=== PATIENT | female | born 1965 | race Caucasian/White ===

== ENCOUNTER 2020-09-21 08:17 | Outpatient (REF) | payer OTHER, SELFPAY ==
[2020-09-21 11:16] LABS: Alanine Aminotransferase 28 U/L (0-31); Albumin Level 4.3 g/dL (3.5-5.0); Alkaline Phosphatase 69 U/L (39-117); Anion Gap 11 (12-20); Aspartate Amino Transferase 24 U/L (5-31); Bilirubin Total 0.5 mg/dL (0.0-1.0); Blood Urea Nitrogen 13 mg/dL (9-16); Carbon Dioxide 28 mmol/L (22-29); Chloride 107 mmol/L (96-108); Cholesterol 255 mg/dL; Estimated Glomerular Filt Rate > 60; Glucose Fasting 82 mg/dL (60-99); HDL Cholesterol 84 mg/dL; LDL Cholesterol Calculated 148 mg/dl; Potassium 4.1 mmol/L (3.3-5.1); Sodium 142 mmol/L (135-145); Total Protein 6.8 g/dL (6.5-8.0); Triglycerides 116 mg/dL
[2020-09-24 11:12] LABS: Vitamin D 25-OH, D2 <4 ng/mL; Vitamin D 25-OH, D3 30 ng/mL; Vitamin D 25-OH, Total 30 ng/mL (30-100)
== END 2020-09-21 08:18 | disposition home or self-care (01) ==
LOC: HO.10HDL 08:17
PROVIDERS: Visit Provider Internal Medicine
DX: E55.9 Vitamin D deficiency, unspecified (principal); E78.5 Hyperlipidemia, unspecified; Z83.3 Family history of diabetes mellitus
CPT/HCPCS: 36415; 80053; 80061; 82306

== ENCOUNTER 2020-12-31 08:01 | Outpatient (REF) | payer OTHER, SELFPAY ==
--- NOTE | ~2020-12-31 | MM_ITS ---
EXAMINATION: MM SCREENING DIGITAL BREAST TOMOSYNTHESIS, BILATERAL CLINICAL INFORMATION: Screening. Asymptomatic. Family history breast cancer, mother. The lifetime risk of breast cancer based on the Tyrer-Cuzick Model is 25%. COMPARISON: Outside mammography: 06/21/2019, 02/12/2016 ([facility]). TECHNIQUE: Digital breast tomosynthesis is performed in both the craniocaudal and mediolateral oblique views along with computer-aided detection (CAD). Synthesized 2D images are generated from the tomosynthesis. FINDINGS: There are scattered areas of fibroglandular density (ACR BI-RADS breast composition Category b). The left breast is unremarkable. There is no interval mass or developing density. Neither breast shows abnormal calcifications. The bilateral axilla and skin contours are unremarkable. The right CC view has increased parenchymal density medial retroareolar region likely incompletely compressed glandular tissue. Patient will be recalled for additional views. MM/MM tomosynthesis screening BI IMPRESSION: 1. Right: Parenchymal asymmetry medial retroareolar breast, suspect incompletely compressed glandular tissue. 2. Left: No mammographic evidence of malignancy. ASSESSMENT: BI-RADS 0: Incomplete - Need Additional Imaging Evaluation RECOMMENDATION: 1. Additional views of the right breast (3-D spot CC, nipple in profile; 3-D ML, nipple in profile). Targeted ultrasound if warranted after review of the additional views. 2. Radiology department staff will contact the patient for additional imaging. 3. The lifetime risk of breast cancer based on the Tyrer-Cuzick Model is 25%. Additional annual adjunct screening with breast MRI may be of benefit in women with a risk score of 20% or greater. This patient's information was entered into a reminder system with a target due date for their next mammogram.
== END 2020-12-31 08:02 | disposition home or self-care (01) ==
LOC: HO.MAMMO 08:01
PROVIDERS: Visit Provider Internal Medicine
DX: Z12.31 Encounter for screening mammogram for malignant neoplasm of breast (principal)
CPT/HCPCS: 77063; 77067

== ENCOUNTER 2021-01-12 08:40 | Outpatient (REF) | payer OTHER, SELFPAY ==
--- NOTE | ~2021-01-12 | MM_ITS ---
EXAMINATION: MM DIAGNOSTIC DIGITAL BREAST TOMOSYNTHESIS, RIGHT CLINICAL INFORMATION: Asymmetry retroareolar region COMPARISON: Mammography: December 31, 2020 and studies dating back to February 12, 2016 TECHNIQUE: Digital breast tomosynthesis is performed. 2D images are generated from the tomosynthesis. The following views are obtained: Spot compression 90 degree mediolateral and craniocaudal views of the right breast FINDINGS: The breasts are heterogeneously dense, which may obscure small masses (ACR BI-RADS breast composition Category c). Additional views show no significant mass, architectural abnormality, or abnormal calcifications. Results are discussed with the patient at time of visit. MM/MM tomosynthesis added views R IMPRESSION: No persistent suspicious subareolar right breast lesion. ASSESSMENT: BI-RADS 1: Negative RECOMMENDATION: Routine annual mammography screening due in 12 months. This patient's information was entered into a reminder system with a target due date for their next mammogram.
== END 2021-01-12 08:41 | disposition home or self-care (01) ==
LOC: HO.MAMMO 08:40
PROVIDERS: PCP Internal Medicine; Visit Provider Internal Medicine
DX: N64.89 Other specified disorders of breast (principal)
CPT/HCPCS: 77061; 77065

== ENCOUNTER 2021-07-13 08:04 | Outpatient (REF) | payer OTHER, SELFPAY ==
[2021-07-13 09:50] LABS: Alanine Aminotransferase 31 U/L (0-31); Albumin Level 4.5 g/dL (3.5-5.0); Alkaline Phosphatase 79 U/L (39-117); Anion Gap 12 (12-20); Aspartate Amino Transferase 26 U/L (5-31); Bilirubin Total 0.7 mg/dL (0.0-1.0); Blood Urea Nitrogen 16 mg/dL (9-16); Calcium 9.9 mg/dL (8.4-10.2); Carbon Dioxide 26 mmol/L (22-29); Chloride 106 mmol/L (96-108); Cholesterol 280 mg/dL; Estimated Glomerular Filt Rate > 60; Glucose Fasting 84 mg/dL (60-99); HDL Cholesterol 71 mg/dL; LDL Cholesterol Calculated 185 mg/dl; Potassium 4.7 mmol/L (3.3-5.1); Sodium 139 mmol/L (135-145); Total Protein 7.1 g/dL (6.5-8.0); Triglycerides 123 mg/dL
[2021-07-16 00:33] LABS: HPV mRNA E6/E7 rflx Not Detected (Not Detected)
[2021-07-18 05:37] LABS: Vitamin D 25-OH, D2 <4 ng/mL; Vitamin D 25-OH, D3 33 ng/mL; Vitamin D 25-OH, Total 33 ng/mL (30-100)
== END 2021-07-13 08:05 | disposition home or self-care (01) ==
LOC: HO.LAB 08:04
PROVIDERS: PCP Internal Medicine; Visit Provider Advanced Practice Midwife
DX: Z01.411 Encounter for gynecological examination (general) (routine) with abnormal findings (principal); Z11.51 Encounter for screening for human papillomavirus (HPV); R23.2 Flushing; E78.5 Hyperlipidemia, unspecified; E55.9 Vitamin D deficiency, unspecified
CPT/HCPCS: 36415; 80053; 80061; 82306; 87624; 88142

== ENCOUNTER 2022-01-10 08:07 | Outpatient (REF) | payer OTHER, SELFPAY ==
--- NOTE | ~2022-01-10 | MM_ITS ---
EXAMINATION: MM SCREENING DIGITAL BREAST TOMOSYNTHESIS, BILATERAL CLINICAL INFORMATION: Screening. Asymptomatic. The lifetime risk of breast cancer based on the Tyrer-Cuzick Model is 26%. COMPARISON: Mammography: 01/12/2021, 12/31/2020; outside mammography 06/21/2019, 02/12/2016 ([facility] TECHNIQUE: Digital breast tomosynthesis is performed in both the craniocaudal and mediolateral oblique views along with computer-aided detection (CAD). Synthesized 2D images are generated from the tomosynthesis. FINDINGS: There are scattered areas of fibroglandular density (ACR BI-RADS breast composition Category b). Parenchymal pattern is similar to prior studies. No developing density or interval architectural abnormality. No abnormal calcifications. The axilla and skin contours are unremarkable. MM/MM tomosynthesis screening BI IMPRESSION: No mammographic evidence of malignancy. ASSESSMENT: BI-RADS 1: Negative RECOMMENDATION: 1. Routine annual mammography screening. 2. The lifetime risk of breast cancer based on the Tyrer-Cuzick Model is 26%. Additional annual adjunct screening with breast MRI may be of benefit in women with a risk score of 20% or greater. This patient's information was entered into a reminder system with a target due date for their next mammogram.
== END 2022-01-10 08:08 | disposition home or self-care (01) ==
LOC: HO.MAMMO 08:07
PROVIDERS: Visit Provider Internal Medicine
DX: Z12.31 Encounter for screening mammogram for malignant neoplasm of breast (principal)
CPT/HCPCS: 77063; 77067

== ENCOUNTER 2022-10-22 08:47 | Outpatient (REF) | payer OTHER, SELFPAY ==
[2022-10-22 09:59] LABS: Alanine Aminotransferase 36 U/L (0-31); Albumin Level 4.4 g/dL (3.5-5.0); Alkaline Phosphatase 98 U/L (39-117); Anion Gap 9 (12-20); Aspartate Amino Transferase 30 U/L (5-31); Bilirubin Total 0.6 mg/dL (0.0-1.0); Blood Urea Nitrogen 13 mg/dL (9-16); Calcium 9.3 mg/dL (8.4-10.2); Carbon Dioxide 30 mmol/L (22-29); Chloride 107 mmol/L (96-108); Cholesterol 207 mg/dL; Estimated Glomerular Filt Rate > 60; Glucose Fasting 83 mg/dL (60-99); HDL Cholesterol 103 mg/dL; LDL Cholesterol Calculated 95 mg/dl; Potassium 4.8 mmol/L (3.3-5.1); Sodium 141 mmol/L (135-145); Total Protein 6.7 g/dL (6.5-8.0); Triglycerides 45 mg/dL
== END 2022-10-22 08:48 | disposition home or self-care (01) ==
LOC: HO.LAB 08:47
PROVIDERS: PCP Internal Medicine; Visit Provider Internal Medicine
DX: Z00.00 Encounter for general adult medical examination without abnormal findings (principal); E78.5 Hyperlipidemia, unspecified
CPT/HCPCS: 36415; 80053; 80061

== ENCOUNTER → 2022-12-21 08:20 | Outpatient (BNVA) | payer OTHER, SELFPAY | PROVIDERS: PCP Internal Medicine; Visit Provider Advanced Practice Midwife ==

== ENCOUNTER 2023-03-25 07:55 | Outpatient (REF) | payer OTHER, SELFPAY ==
--- NOTE | ~2023-03-25 | MM_ITS ---
EXAMINATION: MM SCREENING DIGITAL BREAST TOMOSYNTHESIS, BILATERAL CLINICAL INFORMATION: Screening. Asymptomatic. COMPARISON: Mammography: This study is compared with prior exams dating back to 2016. TECHNIQUE: Digital breast tomosynthesis is performed in both the craniocaudal and mediolateral oblique views along with computer-aided detection (CAD). Synthesized 2D images are generated from the tomosynthesis. FINDINGS: There are scattered areas of fibroglandular density (ACR BI-RADS breast composition Category b). There are no significant masses, abnormal calcifications, or other abnormalities. MM/MM tomosynthesis screening BI IMPRESSION: No mammographic evidence of malignancy. ASSESSMENT: BI-RADS BI-RADS 1 - Negative RECOMMENDATION: Routine annual mammography screening. 1 year F/U This examination should not preclude the clinical evaluation of a suspicious palpable abnormality. This patient's information was entered into a reminder system with a target due date for their next mammogram.
== END 2023-03-25 07:56 | disposition home or self-care (01) ==
LOC: HO.MAMMO 07:55
PROVIDERS: Visit Provider Internal Medicine
DX: Z12.31 Encounter for screening mammogram for malignant neoplasm of breast (principal)
CPT/HCPCS: 77063; 77067

== ENCOUNTER → 2023-03-25 08:00 | Outpatient (BNV) | payer OTHER, SELFPAY | PROVIDERS: Visit Provider Radiology Diagnostic Radiology | DX: Z12.31 Encounter for screening mammogram for malignant neoplasm of breast (principal) | CPT/HCPCS: 77063; 77067 ==

== ENCOUNTER 2023-09-05 07:19 | Outpatient (AMB) | payer OTHER, SELFPAY ==
[2023-09-05 07:22] VITALS: BP 124/78; PULSE 78; O2SAT 99; BMI 29.5
--- NOTE | 2023-09-05 07:22 | A.OFFPC_ITS ---
Vital Signs 09/05/23 07:22 Height 5 ft 4 in Weight 172 lb BMI 29.5 BP 124/78 Blood Pressure Location Lt brachial Position Sitting Pulse 78 Pulse Source Pulse Oximeter Pulse Oximetry (%) 99 Oxygen Delivery Method Room Air Intake Visit Reasons: physical Cardiac Catheterization Technologist Required: No Accompanied by: Self / Same As Patient Allergies No Known Allergies Allergy (Verified 09/05/23 07:31) Medication List - Last Reconciled 09/05/23 by Syl Ayala MD rosuvastatin 10 mg PO BEDTIME 90 days sertraline 25 mg PO DAILY 90 days Tobacco use date assessed: 09/05/23 Dental Screening Dental Screen Date: 09/05/23 Did you have a dental visit in the last 12 months?: Yes Did you have a dental problem in the last 6 months where you did not have access to dental care?: No Was dental information given to patient?: Patient has dentist HPI HPI Comments History of Present Illness Details This is a 57-year-old female with mild major depression that comes for her physical exam. Depression still present with sertraline 25 mg and I will increase it to 50 mg. Last mammogram was March 2023. Last Pap smear was 2020. Last colonoscopy was 8 years ago and was normal as per patient. No chest pain or shortness of breath. Had 1st dose of shingles vaccine last year but the 2nd dose was not covered by insurance and this is why she did not had it. She had shingles about a week ago and received treatment at urgent care. Still has rash but it is dry. [facility] Medical History (Updated 09/05/23 @ 07:39 by Syl Ayala MD) Physical exam Screening for cervical cancer Dyslipidemia Family history of diabetes mellitus Surgical History History of ankle surgery Family History (Updated 09/05/23 @ 07:35 by Syl Ayala MD) Mother Cancer Alzheimer disease Ovarian cancer Breast cancer Father Diabetes Sister Breast cancer Social History Housing: House Alcohol intake: current Alcohol intake frequency: a few times a week Alcohol type: beer, wine and hard liquor Patient Tobacco Use Status: Former Tobacco user Tobacco use type: Cigarette e-Cigarette/Vaping Use: Never Used Second Hand Smoke Exposure: No service: No Current occupational status: employed Current occupational exposures/hazards: No Cognitive needs: No Hearing needs: No Vision needs: Yes Questionnaire PHQ-9 Over the last 2 weeks, how often have you been bothered by any of the following problems? 1. Little interest or pleasure in doing things: nearly every day 2. Feeling down, depressed, or hopeless: several days 3. Trouble falling or staying asleep, or sleeping too much: several days 4. Feeling tired or having little energy: several days 5. Poor appetite or overeating: not at all 6. Feeling bad about yourself - or that you are a failure or have let yourself or your family down: not at all 7. Trouble concentrating on things, such as reading the newspaper or watching television: several days 8. Moving or speaking so slowly that other people could have noticed. Or the opposite - being so fidgety or restless that you have been moving around a lot more than usual: not at all 9. Thoughts that you would be better off or of hurting yourself in some way: not at all Total score: 7 Depression Screening Interpretation: Positive Depression Screening Follow-up: Existing condition and In treatment Depression Screening Done: Yes 55104 - PHQ-9 Billing: Yes Source: Developed by Drs. Jaswinder Soares, Radha Dent, Robinson Block and colleagues, with an educational jluis from [employer]. Thrive Questionnaire Date Thrive assessed: 09/05/23 I am a: Patient What is your living situation today?: I have a steady place to live Within the past 12 months, did the food you bought not last and you didn't have the money to get more?: Never true Within the past 12 months, did you worry whether your food would run out before you got money to buy more?: Never true Do you have trouble paying for medicines?: No Do you have trouble getting transportation to medical appointments?: No Do you have trouble paying your heating and electricity bill?: No Do you have trouble taking care of your child, family member or friend?: No Do you have trouble with day-to-day activities such as bathing, preparing meals, shopping, managing finances, etc.?: No Are you currently unemployed and looking for a job?: No Are you interested in more education?: No Currently or been in a relationship where the following occur: no concerns reported THRIVE Score: 0 AUDIT C Alcohol Use Questionnaire (AUDIT-C) 1. How often do you have a drink containing alcohol?: 4 or more times a week 2. How many drinks containing alcohol do you have on a typical day when you are drinking?: 1 or 2 3. How often do you have six or more drinks on one occasion?: Never Total Score: 4 KAREN-7 AMB Questionnaire KAREN-7 Date KAREN - 7 assessed: 09/05/23 Feeling nervous, anxious, or on edge: 3 = Nearly every day Not being able to stop or control worryin = Nearly every day Worrying too much about different things: 3 = Nearly every day Trouble relaxin = Not at all Being so restless that it is hard to sit still: 0 = Not at all Becoming easily annoyed or irritable: 3 = Nearly every day Feeling afraid as if something awful might happen: 3 = Nearly every day Total KAREN-7 score (0-4 normal; 5-9 mild; 10-14 moderate; 15-21 severe): 15 Source: Developed by Drs. Jaswinder Soares, Radha Dent, Robinson Block and colleagues, with an educational jluis from [employer]. KAREN-7 Assessment Billing KAREN-7 Assessment Tool: KAREN-7 Assessment 98663 Review of Systems Const All systems reviewed & are unremarkable except as noted in HPI and below Eyes Reports no additional complaints, Denies change in vision and Denies other visual disturbances Card Denies chest pain at rest, Denies chest pain with activity, Denies edema, Denies irregular heart rhythm, Denies claudication, Denies dyspnea, Denies dyspnea on exertion, Denies orthopnea, Denies paroxysmal nocturnal dyspnea and Denies slow heart rate Resp Denies cough, Denies dyspnea and Denies dyspnea on exertion GI Denies abdominal pain, Denies change in bowel habits, Denies excessive flatus, Denies nausea and Denies vomiting Denies urinary incontinence, Denies urinary hesitancy and Denies urinary urgency Musc Denies abnormal gait, Denies atrophy, Denies deformity and Denies limited range of motion Skin/Breast Denies bleeding lesions, Denies changing lesions and Denies rash Neuro Denies abnormal gait, Denies behavioral changes, Denies confusion and Denies lack of coordination Psych Denies behavioral changes and Denies confusion Physical exam (Primary Care) Vital Signs: Last Vital Signs Pulse 78 09/05/23 07:22 BP 124/78 09/05/23 07:22 Pulse Ox 99 09/05/23 07:22 Oxygen Delivery Method Room Air 09/05/23 07:22 BMI result Body Mass Index 29.5 Tobacco/Smoking Status: Tobacco use Status Tobacco use date assessed 09/05/23 09/05/23 07:28 Patient Tobacco Use Status Former Tobacco user 09/05/23 07:28 Tobacco use type Cigarette 09/05/23 07:28 e-Cigarette/Vaping Use Never Used 09/05/23 07:28 PHQ-9: PHQ-9 Score PHQ-9: Total score 7 09/05/23 07:28 Depression Screening Interpretation: Positive Depression Screening Follow-up: Existing condition and In treatment Thrive Assessment: Date of Thrive Assessment Date Thrive assessed 09/05/23 09/05/23 07:28 Currently or been in a relationship where the following occur: no concerns reported Const General: No confusion Orientation/consciousness: patient oriented x3 and No confusion HENMT Head: Yes normal to inspection, Yes normocephalic and Yes atraumatic Ears: external ears normal Eyes General: appearance normal, both eyes and all related structures Eyelids: Yes eyelids normal Conjunctivae: conjunctivae normal Neck Neck: Yes normal visual inspection and Yes supple Resp Effort & Inspection: normal respiratory effort Auscultation: clear to auscultation bilaterally Cardio Jugular venous distension: no JVD Rate: regular rate Rhythm: regular rhythm Heart sounds: S1 normal heart sound present and S2 normal heart sound present GI Inspection: Yes normal to inspection Palpation (GI): Soft to palpation and nontender Auscultation: normal bowel sounds Skin General skin exam: no rashes or lesions noted Neuro General: patient oriented x3, no focal motor deficits and No confusion Extrem General: Yes full ROM Psych Appearance: grossly normal Assessment and Plan Assessment & Plan (1) Physical exam: Code(s): Z00.00 - Encounter for general adult medical examination without abnormal findings Plan: Repeat in a year. (2) Mild major depression: Code(s): F32.0 - Major depressive disorder, single episode, mild Plan: Increase Sertraline to 50 mg. Orders: Orders Lipid Panel Today E78.5 - Hyperlipidemia, unspecified Comprehensive [place]. Panel Fast Today Z00.00 - Encounter for general adult medical examination without abnormal findings Medications: New sertraline 50 mg PO DAILY 90 tabs 1RF 90 days F32.0 - Major depressive disorder, single episode, mild varicella-zoster [id number] (PF) 50 mcg/0.5 mL (Shingrix (PF)) 0.5 mL IM ONCE 1 ea 0RF 1 day Discontinued sertraline Discontinued Reason: Patient Completed Course 25 mg PO DAILY 90 days 90 tabs 1RF F41.1 - Generalized anxiety disorder Coding Level of Care Code Est Pt Prev Care 40-64y(84776) Diagnoses Physical exam Z00.00 Mild major depression F32.0 Additional Codes KAREN-7 Assessment Billing - KAREN-7 Assessment Tool: KAREN-7 Assessment 86189 ([id number]) Time Spent (min) 32
== END 2023-09-05 07:48 | disposition home or self-care (01) ==
PROVIDERS: Visit Provider Internal Medicine
DX: Z00.00 Encounter for general adult medical examination without abnormal findings (principal); F32.0 Major depressive disorder, single episode, mild
CPT/HCPCS: 99396

== ENCOUNTER 2023-10-21 09:32 | Outpatient (REF) | payer OTHER, SELFPAY ==
[2023-10-21 11:15] LABS: Alanine Aminotransferase 31 U/L (0-31); Albumin Level 4.3 g/dL (3.5-5.0); Alkaline Phosphatase 82 U/L (39-117); Anion Gap 10 (12-20); Aspartate Amino Transferase 29 U/L (5-31); Bilirubin Total 0.6 mg/dL (0.0-1.0); Blood Urea Nitrogen 12 mg/dL (9-16); Calcium 9.5 mg/dL (8.4-10.2); Carbon Dioxide 28 mmol/L (22-29); Chloride 107 mmol/L (96-108); Cholesterol 211 mg/dL (<200); Estimated Glomerular Filt Rate > 60; Glucose Fasting 82 mg/dL (60-99); HDL Cholesterol 116 mg/dL (>40); LDL Cholesterol Calculated 86 mg/dL (<100); Potassium 4.3 mmol/L (3.3-5.1); Sodium 141 mmol/L (135-145); Total Protein 7.2 g/dL (6.5-8.0); Triglycerides 47 mg/dL (<150)
== END 2023-10-21 09:33 | disposition home or self-care (01) ==
LOC: HO.LAB 09:32
PROVIDERS: PCP Internal Medicine; Visit Provider Internal Medicine
DX: Z00.00 Encounter for general adult medical examination without abnormal findings (principal); E78.5 Hyperlipidemia, unspecified
CPT/HCPCS: 36415; 80053; 80061

== ENCOUNTER 2024-02-29 07:37 | Outpatient (AMB) | payer OTHER, SELFPAY ==
--- NOTE | 2024-02-29 07:51 | A.OFFVIS_ITS ---
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 She is doing well with no concerns. Attempting to eat a healthy diet with a multivitamin, and stays active with exercise. Currently not sexually active. Denies any vaginal dryness or irritation. STI testing offered; she declines. Last pap smear; 2020. Last mammogram; 2022. Colonoscopy is UTD. Denies any family history of colon cancer. Family history of breast and ovarian cancer-mother, breast cancer sister, she is unaware of her sister had BRCA testing. [facility] Medical History Physical exam Screening for cervical cancer Dyslipidemia Family history of diabetes mellitus Surgical History History of ankle surgery Family History (Updated 02/29/24 @ 08:03 by Linsey Ramon CNM) Mother Cancer Alzheimer disease Ovarian cancer Breast cancer Father Diabetes Sister Breast cancer, Onset Age: 50 Social History Housing: House Alcohol intake: current Alcohol intake frequency: a few times a week Alcohol type: beer, wine and hard liquor Patient Tobacco Use Status: Former Tobacco user Tobacco use type: Cigarette e-Cigarette/Vaping Use: Never Used Second Hand Smoke Exposure: No service: No Current occupational status: employed Current occupational exposures/hazards: No Cognitive needs: No Hearing needs: No Vision needs: Yes Female Reproductive History Menstrual Total pregnancies: 0 Date of last pap smear: 07/13/21 (neg pap and hpv) Date of Mammogram: 03/25/23 ([facility]) Review of Systems Const All systems reviewed & are unremarkable except as noted in HPI and below Reports as per HPI Eyes Reports no additional complaints ENT Reports no additional complaints Card Reports no additional complaints Resp Reports no additional complaints GI Reports as per HPI and Reports no additional complaints Reports as per HPI Musc Reports no additional complaints Skin/Breast Reports as per HPI Neuro Reports no additional complaints Psych Reports no additional complaints Endo Reports no additional complaints Benny/Lymph Reports no additional complaints Aller/Immun Reports no additional complaints Physical Exam Const General: cooperative, healthy appearing, no acute distress, well developed and alert Orientation/consciousness: patient oriented x3 HEENT Head: Yes normal to inspection Eyes General: appearance normal, both eyes and all related structures Neck Neck: Yes normal visual inspection Thyroid: Thyroid normal Chest Chest palpation & inspection: normal inspection of the chest and other (no puc kering, dimpling, peau de orange, retraction, discharge, masses) Breast/axilla inspection: normal inspection of the breasts Breast/axilla palpation: normal palpation of the breasts Resp Effort & Inspection: normal respiratory effort GI Inspection: Yes normal to inspection Palpation (GI): Soft to palpation Rectal Exam - Female: deferred General: Yes bladder normal to palpation External Female Exam: normal external appearance and normal appearance of the urethra Speculum Exam - Vagina: normal appearance of the vagina, normal palpation, normal vaginal discharge and vagina atrophic Speculum Exam - Cervix: normal appearance of the cervix and normal palpation Bimanual exam- vagina & uterus: normal bimanual exam, normal palpation, uterine size normal, bladder normal to palpation, normal palpation and non-tender Bimanual Exam- Adnexa, other: no masses Skin General skin exam: no rashes or lesions noted Rashes: no rashes Neuro General: patient oriented x3 Cognition (Neuro): normal cognition Extrem General: Yes normal to inspection Psych Attitude: cooperative Thought process: Normal thought process present Assessment & Plan Assessment & Plan (1) Encounter for well woman exam with routine gynecological exam: Code(s): Z01.419 - Encounter for gynecological examination (general) (routine) without abnormal findings Category: Medical Plan: Discussed: Current recommendations for pap smears per ASCCP guidelines. Breast awareness, periodic self breast exams and yearly mammogram. Maintain a healthy lifestyle, well balanced diet including Calcium 1,200 mg and Vitamin D 600 IU daily, and routine exercise. Calcium handout dispensed. BRCA testing offered referral, patient would like to think about it, advised to call back if she reconsiders or sign up for the patient portal in message me Contact the office with any postmenopausal bleeding. Patient verbalizes understanding and agrees to the plan of care. She was given opportunity to ask questions and all questions were answered to the best of my ability. RTO in 1 year for annual energy conservation representative exam. This note is constructed using voice recognition software. While every effort has been made to ensure accuracy, waste water worker errors may have been included. Coding Level of Care Code Est Pt Prev Care 40-64y(81627) Diagnoses Encounter for well woman exam with routine gynecological exam Z01.419
[2024-02-29 07:52] VITALS: BP 118/80; BMI 29.5
== END 2024-02-29 08:14 | disposition home or self-care (01) ==
PROVIDERS: PCP Internal Medicine; Visit Provider Advanced Practice Midwife
DX: Z01.419 Encounter for gynecological examination (general) (routine) without abnormal findings (principal)
CPT/HCPCS: 99396

== ENCOUNTER → 2024-02-29 07:37 | Outpatient (BNVA) | payer OTHER, SELFPAY | PROVIDERS: PCP Internal Medicine; Visit Provider Advanced Practice Midwife ==

== ENCOUNTER 2024-03-30 08:08 | Outpatient (REF) | payer OTHER, SELFPAY ==
--- NOTE | ~2024-03-30 | MM_ITS ---
EXAMINATION: MM SCREENING DIGITAL BREAST TOMOSYNTHESIS, BILATERAL CLINICAL INFORMATION: Screening. Asymptomatic. COMPARISON: Mammography: Comparison is made with available priors TECHNIQUE: Digital breast mammography with tomosynthesis is performed in both the craniocaudal and mediolateral oblique views along with computer-aided detection (CAD). FINDINGS: There are scattered areas of fibroglandular density (ACR BI-RADS breast composition Category b). There are no significant masses, abnormal calcifications, or other abnormalities. MM/MM tomosynthesis screening BI IMPRESSION: No mammographic evidence of malignancy. ASSESSMENT: BI-RADS BI-RADS 1 - Negative RECOMMENDATION: Routine annual mammography screening. 1 year F/U This examination should not preclude the clinical evaluation of a suspicious palpable abnormality. This patient's information was entered into a reminder system with a target due date for their next mammogram. Electronically signed by: Kayley Arreola DO 04/12/2024 08:55 AM EDT
== END 2024-03-30 08:09 | disposition home or self-care (01) ==
LOC: HO.MAMMO 08:08
PROVIDERS: PCP Internal Medicine; Visit Provider Internal Medicine
DX: Z12.31 Encounter for screening mammogram for malignant neoplasm of breast (principal)
CPT/HCPCS: 77063; 77067

== ENCOUNTER → 2024-03-30 08:15 | Outpatient (BNV) | payer OTHER, SELFPAY | PROVIDERS: PCP Internal Medicine; Visit Provider Internal Medicine | DX: Z12.31 Encounter for screening mammogram for malignant neoplasm of breast (principal) | CPT/HCPCS: 77063; 77067 ==

== ENCOUNTER 2024-09-09 07:27 | Outpatient (AMB) | payer OTHER, SELFPAY ==
[2024-09-09 07:42] VITALS: BP 122/80
--- NOTE | 2024-09-09 07:42 | A.OFFPC_ITS ---
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 Accompanied by: Self / Same As Patient Allergies No Known Allergies Allergy (Verified 09/09/24 07:53) Medication List - Last Reconciled 09/09/24 by Syl Ayala MD rosuvastatin 10 mg PO BEDTIME 90 days sertraline 50 mg PO DAILY 90 days sertraline 25 mg PO DAILY 90 days Tobacco use date assessed: 09/09/24 Dental Screening Dental Screen Date: 09/09/24 Did you have a dental visit in the last 12 months?: Yes Did you have a dental problem in the last 6 months where you did not have access to dental care?: No Was dental information given to patient?: Patient has dentist HPI HPI Comments History of Present Illness Details This is a 58 year old female with mild major depression that comes for her physical exam. Mammogram done last year was normal. Colonoscopy done at 49 years old and was normal. Next colonoscopy should be next year. Pap smear done 2020 with HPV negative and next Pap should be 2025. Will have flu and Tdap vaccine at the pharmacy. Mild major depression stable with SSRIs with PHQ9 of 8 today. Complaints of right ankle pain that has been more prominent this week while walking. Had surgery over a decade ago and has had intermittent issues with the ankle but now is more of a continuous pain when walking. Will be refer to podiatry and order XR. [facility] Medical History Physical exam Screening for cervical cancer Dyslipidemia Family history of diabetes mellitus Surgical History History of ankle surgery Family History Mother Cancer Alzheimer disease Ovarian cancer Breast cancer Father Diabetes Sister Breast cancer, Onset Age: 50 Social History Housing: House Alcohol intake: current Alcohol intake frequency: a few times a week Alcohol type: beer, wine and hard liquor Patient Tobacco Use Status: Former Tobacco user Tobacco use type: Cigarette e-Cigarette/Vaping Use: Never Used Second Hand Smoke Exposure: No service: No Current occupational status: employed Current occupational exposures/hazards: No Cognitive needs: No Hearing needs: No Vision needs: Yes Questionnaire PHQ-9 Over the last 2 weeks, how often have you been bothered by any of the following problems? 1. Little interest or pleasure in doing things: more than half the days 2. Feeling down, depressed, or hopeless: more than half the days 3. Trouble falling or staying asleep, or sleeping too much: more than half the days 4. Feeling tired or having little energy: several days 5. Poor appetite or overeating: not at all 6. Feeling bad about yourself - or that you are a failure or have let yourself or your family down: not at all 7. Trouble concentrating on things, such as reading the newspaper or watching television: several days 8. Moving or speaking so slowly that other people could have noticed. Or the opposite - being so fidgety or restless that you have been moving around a lot more than usual: not at all 9. Thoughts that you would be better off or of hurting yourself in some way: not at all Total score: 8 Depression Screening Interpretation: Positive Depression Screening Follow-up: Existing condition, In treatment and Follow-up Visit Requested Depression Screening Done: Yes 98551 - PHQ-9 Billing: Yes Source: Developed by Drs. Jaswinder Soares, Radha Dent, Robinson Block and colleagues, with an educational jluis from [employer]. Thrive Questionnaire Date Thrive assessed: 09/09/24 I am a: Patient What is your living situation today?: I have a steady place to live Within the past 12 months, did the food you bought not last and you didn't have the money to get more?: Never true Within the past 12 months, did you worry whether your food would run out before you got money to buy more?: Never true Do you have trouble paying for medicines?: Yes Do you have trouble getting transportation to medical appointments?: No Do you have trouble paying your heating and electricity bill?: I choose not to answer this question Do you have trouble taking care of your child, family member or friend?: I choose not to answer this question Do you have trouble with day-to-day activities such as bathing, preparing meals, shopping, managing finances, etc.?: No Are you currently unemployed and looking for a job?: No Are you interested in more education?: No Please select the resources that you would like help with: None Currently or been in a relationship where the following occur: No concerns reported THRIVE Score: 0 AUDIT C Alcohol Use Questionnaire (AUDIT-C) 1. How often do you have a drink containing alcohol?: 4 or more times a week 2. How many drinks containing alcohol do you have on a typical day when you are drinking?: 1 or 2 3. How often do you have six or more drinks on one occasion?: Never Total Score: 4 KAREN-7 AMB Questionnaire KAREN-7 Date KAREN - 7 assessed: 09/09/24 Feeling nervous, anxious, or on edge: 3 = Nearly every day Not being able to stop or control worryin = Nearly every day Worrying too much about different things: 3 = Nearly every day Trouble relaxin = Not at all Being so restless that it is hard to sit still: 0 = Not at all Becoming easily annoyed or irritable: 3 = Nearly every day Feeling afraid as if something awful might happen: 2 = More than half the days Total KAREN-7 score (0-4 normal; 5-9 mild; 10-14 moderate; 15-21 severe): 14 Source: Developed by Drs. Jaswinder Soares, Radha Dent, Robinson Block and colleagues, with an educational jluis from [employer]. KAREN-7 Assessment Billing KAREN-7 Assessment Tool: KAREN-7 Assessment 47998 Review of Systems Const All systems reviewed & are unremarkable except as noted in HPI and below Card Denies chest pain at rest, Denies chest pain with activity, Denies edema, Denies irregular heart rhythm, Denies claudication, Denies dyspnea, Denies dyspnea on exertion, Denies orthopnea, Denies paroxysmal nocturnal dyspnea and Denies slow heart rate Resp Denies cough, Denies dyspnea and Denies dyspnea on exertion GI Denies abdominal pain, Denies change in bowel habits, Denies excessive flatus, Denies nausea and Denies vomiting Denies urinary incontinence, Denies urinary hesitancy and Denies urinary urgency Musc Reports arthralgias Physical exam (Primary Care) Vital Signs: Last Vital Signs BP 122/80 09/09/24 07:42 BMI result Body Mass Index 30.0 Tobacco/Smoking Status: Tobacco use Status Tobacco use date assessed 09/09/24 09/09/24 07:48 Patient Tobacco Use Status Former Tobacco user 09/09/24 07:48 Tobacco use type Cigarette 09/09/24 07:48 e-Cigarette/Vaping Use Never Used 09/09/24 07:48 PHQ-9: PHQ-9 Score PHQ-9: Total score 8 09/09/24 08:09 Depression Screening Interpretation: Positive Depression Screening Follow-up: Existing condition, In treatment and Follow-up Visit Requested Thrive Assessment: Date of Thrive Assessment Date Thrive assessed 09/09/24 09/09/24 07:48 Currently or been in a relationship where the following occur: No concerns reported HENMT Head: Yes normal to inspection, Yes normocephalic and Yes atraumatic Ears: external ears normal Eyes General: appearance normal, both eyes and all related structures Eyelids: Yes eyelids normal Conjunctivae: conjunctivae normal Neck Neck: Yes normal visual inspection and Yes supple Resp Effort & Inspection: normal respiratory effort Auscultation: clear to auscultation bilaterally Cardio Jugular venous distension: no JVD Rate: regular rate Rhythm: regular rhythm Heart sounds: S1 normal heart sound present and S2 normal heart sound present GI Inspection: Yes normal to inspection Palpation (GI): Soft to palpation and nontender Auscultation: normal bowel sounds Skin General skin exam: no rashes or lesions noted Neuro General: no focal motor deficits Extrem General: Yes full ROM Psych Appearance: grossly normal Office Procedures Flu Questionnaire Does the patient have a severe egg allergy?: No Immunizations Fluarix Triv [id number] (PF) 45 mcg (15 mcg x 3)/0.5 mL IM syringe Performing Provider: Syl Ayala MD [place] Documented (not given) by: JULIO C Reid on 09/09/24 08:09 Reason Not Given: Patient Refused Coding Level of Care Code Est Pt Level 3 (83950) Est Pt Prev Care 40-64y(68997) Diagnoses Physical exam Z00.00 Mild major depression F32.0 Acute right ankle pain M25.571 Chronicity: acute Additional Codes KAREN-7 Assessment Billing - KAREN-7 Assessment Tool: KAREN-7 Assessment 35684 ([id number]) PHQ-9 - 12009 - PHQ-9 Billing: Yes ([id number]) Time Spent (min) 32 Assessment & Plan Assessment & Plan (1) Physical exam: Code(s): Z00.00 - Encounter for general adult medical examination without abnormal findings Category: Medical Plan: Repeat in a year. (2) Mild major depression: Code(s): F32.0 - Major depressive disorder, single episode, mild Category: Medical Plan: Continue sertraline. (3) Right ankle pain: Code(s): M25.571 - Pain in right ankle and joints of right foot Category: Medical Qualifiers: Chronicity: acute Qualified Code(s): M25.571 - Pain in right ankle and joints of right foot Plan: XR ordered. Refer to podiatry. Orders: Orders Lipid Panel Today E78.5 - Hyperlipidemia, unspecified Comprehensive [place]. Panel Fast Today Z00.00 - Encounter for general adult medical examination without abnormal findings XR ankle RT 2V Today M25.571 - Pain in right ankle and joints of right foot Influenza [id number] Immunization Today Z23 - Encounter for immunization Referrals Podiatry Referral M25.571 - Pain in right ankle and joints of right foot
== END 2024-09-09 08:07 | disposition home or self-care (01) ==
PROVIDERS: PCP Internal Medicine; Visit Provider Internal Medicine
DX: Z00.00 Encounter for general adult medical examination without abnormal findings (principal); M25.571 Pain in right ankle and joints of right foot; F32.0 Major depressive disorder, single episode, mild

== ENCOUNTER → 2024-09-09 07:27 | Outpatient (BNVA) | payer OTHER, SELFPAY | PROVIDERS: PCP Internal Medicine; Visit Provider Internal Medicine | DX: Z00.00 Encounter for general adult medical examination without abnormal findings (principal); F32.0 Major depressive disorder, single episode, mild; M25.571 Pain in right ankle and joints of right foot; Z28.21 Immunization not carried out because of patient refusal | CPT/HCPCS: 96127 ==

== ENCOUNTER 2024-10-19 08:16 | Outpatient (REF) | payer OTHER, SELFPAY ==
--- NOTE | ~2024-10-19 | XR_ITS ---
EXAMINATION: XR ANKLE 3 OR MORE VIEWS RIGHT HISTORY: M25.571 - Pain in right ankle and joints of right foot COMPARISON: There are no prior studies available for comparison. FINDINGS: Three views of the right ankle are submitted. There is an ovoid lucency in the medial aspect of the talar dome noted on the AP view. A screw is seen in the talus. Well-corticated osseous densities adjacent to the tips of the medial and lateral malleoli may be the result of old trauma. No acute fracture or dislocation is identified. The joint spaces are preserved. The soft tissues are unremarkable. XR/XR ankle RT min 3V IMPRESSION: Ovoid lucency in the medial aspect of the talar dome. Probable old trauma to the medial and lateral malleolar. Comparison with prior outside studies is recommended. Electronically signed by: Jaswinder Paredes MD 10/21/2024 12:55 PM EDT
[2024-10-19 09:53] LABS: Alanine Aminotransferase 39 U/L (0-31); Albumin Level 4.5 g/dL (3.5-5.0); Alkaline Phosphatase 90 U/L (39-117); Anion Gap 12 (12-20); Aspartate Amino Transferase 38 U/L (5-31); Bilirubin Total 0.5 mg/dL (0.0-1.0); Blood Urea Nitrogen 20 mg/dL (9-16); Calcium 9.5 mg/dL (8.4-10.2); Carbon Dioxide 26 mmol/L (22-29); Chloride 108 mmol/L (96-108); Cholesterol 218 mg/dL (<200); Estimated Glomerular Filt Rate > 60; Glucose Fasting 77 mg/dL (60-99); HDL Cholesterol 113 mg/dL (>40); LDL Cholesterol Calculated 95 mg/dL (<100); Potassium 4.8 mmol/L (3.3-5.1); Sodium 141 mmol/L (135-145); Total Protein 7.6 g/dL (6.5-8.0); Triglycerides 54 mg/dL (<150)
== END 2024-10-19 08:17 | disposition home or self-care (01) ==
LOC: HO.XRAY 08:16
PROVIDERS: PCP Internal Medicine; Visit Provider Internal Medicine
DX: M25.571 Pain in right ankle and joints of right foot (principal); E78.5 Hyperlipidemia, unspecified; Z00.00 Encounter for general adult medical examination without abnormal findings
CPT/HCPCS: 36415; 73610; 80053; 80061

== ENCOUNTER → 2024-10-19 08:49 | Outpatient (BNV) | payer OTHER, SELFPAY | PROVIDERS: PCP Internal Medicine; Visit Provider Radiology Diagnostic Radiology | DX: M25.571 Pain in right ankle and joints of right foot (principal) | CPT/HCPCS: 73610 ==

== ENCOUNTER 2025-03-05 15:37 | Outpatient (AMB) | payer OTHER, SELFPAY ==
--- NOTE | 2025-03-05 15:43 | MHC.OFFVIS ---
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 Currently not sexually active. Denies any vaginal dryness or irritation. STI testing offered; she declined. Attempting to eat a healthy diet with calcium and vitamin D and stays active with exercise. Last pap smear; 2020, negative. Last mammogram; 2023. Booked 03/2025. Colonoscopy is UTD. Denies any family history of ovarian or colon cancer. FH breast cancer-mother. [facility] Medical History Physical exam Screening for cervical cancer Dyslipidemia Family history of diabetes mellitus Surgical History History of ankle surgery Family History Mother Cancer Alzheimer disease Ovarian cancer Breast cancer Father Diabetes Sister Breast cancer, Onset Age: 50 Social History Housing: House Alcohol intake: current Alcohol intake frequency: a few times a week Alcohol type: beer, wine and hard liquor Patient Tobacco Use Status: Former Tobacco user Tobacco use type: Cigarette e-Cigarette/Vaping Use: Never Used Second Hand Smoke Exposure: No service: No Current occupational status: employed Current occupational exposures/hazards: No Cognitive needs: No Hearing needs: No Vision needs: Yes Female Reproductive History Menstrual Total pregnancies: 0 Date of last pap smear: 07/13/21 (neg pap and hpv) Date of Mammogram: 03/30/24 (Birad 1) Review of Systems Const All systems reviewed & are unremarkable except as noted in HPI and below Reports as per HPI Eyes Reports no additional complaints ENT Reports no additional complaints Card Reports no additional complaints Resp Reports no additional complaints GI Reports as per HPI and Reports no additional complaints Reports as per HPI Musc Reports no additional complaints Skin/Breast Reports as per HPI Neuro Reports no additional complaints Psych Reports no additional complaints Endo Reports no additional complaints Benny/Lymph Reports no additional complaints Aller/Immun Reports no additional complaints Physical Exam Vital Signs: Last Vital Signs BP 114/76 03/05/25 15:46 BMI result Body Mass Index 30.9 Const General: cooperative, healthy appearing, no acute distress, well developed and alert Orientation/consciousness: patient oriented x3 HEENT Head: Yes normal to inspection Eyes General: appearance normal, both eyes and all related structures Neck Neck: Yes normal visual inspection Thyroid: Thyroid normal Chest Chest palpation & inspection: normal inspection of the chest and other (no puckering, dimpling, peau de orange, retraction, discharge, masses) Breast/axilla inspection: normal inspection of the breasts Breast/axilla palpation: normal palpation of the breasts Resp Effort & Inspection: normal respiratory effort GI Inspection: Yes normal to inspection Palpation (GI): Soft to palpation Rectal Exam - Female: deferred General: Yes bladder normal to palpation External Female Exam: normal external appearance and normal appearance of the urethra Speculum Exam - Vagina: normal appearance of the vagina, normal palpation, normal vaginal discharge and vagina atrophic Speculum Exam - Cervix: normal appearance of the cervix and normal palpation Bimanual exam- vagina & uterus: normal bimanual exam, normal palpation, uterine size normal, bladder normal to palpation, normal palpation and non-tender Bimanual Exam- Adnexa, other: no masses Skin General skin exam: no rashes or lesions noted Rashes: no rashes Neuro General: patient oriented x3 Cognition (Neuro): normal cognition Extrem General: Yes normal to inspection Psych Attitude: cooperative Thought process: Normal thought process present Assessment & Plan Assessment & Plan (1) Encounter for well woman exam with routine gynecological exam: Code(s): Z01.419 - Encounter for gynecological examination (general) (routine) without abnormal findings Category: Medical Plan Discussed: Current recommendations for pap smears per ASCCP guidelines. Breast awareness, periodic self breast exams and yearly mammogram. Maintain a healthy lifestyle, well balanced diet including Calcium 1,200 mg and Vitamin D 600 IU daily, and routine exercise. Vulvar care related to menopausal changes. Self-help measures, avoidances options for treatment. Consider estrogen therapy in call office for a follow up if decides to trial. Counseled regarding BRCA screening due to family history of breast cancer, she will consider a referrral, advised to call the office or send a portal message if she does. Contact the office with any postmenopausal bleeding. Patient verbalizes understanding and agrees to the plan of care. She was given opportunity to ask questions and all questions were answered to the best of my ability. RTO in 1 year for annual machine hose cutter exam. This note is constructed using voice recognition software. While every effort has been made to ensure accuracy, clinical quality assurance specialist errors may have been included. Coding Level of Care Code Est Pt Prev Care 40-64y(65051) Diagnoses Encounter for well woman exam with routine gynecological exam Z01.419
[2025-03-05 15:46] VITALS: BP 114/76; BMI 30.9
--- OUTSIDE RECORDS SUMMARY | 2025-03-05 16:22 | XMS_ITS | Clinical Summary ---
Author Organization [address] Address [address] [place] [phone] Phone Care Team Providers Care Garment Folder Name Role Phone Syl Ayala MD Primary Care Provider [phone] Social History Tobacco Use Types Packs/Day Years Used Date Smoking Tobacco: Never Assessed Comments Unknown Sex and Gender Information Value Date Recorded Sex Assigned at Not on file Legal Sex Female 11:13 AM EST Gender Identity Not on file Sexual Orientation Not on file Plan of Treatment Health Maintenance Due Date Last Done Comments DTaP,Tdap,and Td Vaccines (1 - Tdap) 12/25/1983 Cervical Cancer Screening: Pap Smear 1985 Pneumococcal Vaccine: 50+ Years (1 of 1 - PCV) 2014 Breast Cancer Screening 06/23/2021 06/23/2019, 04/10 Zoster Vaccines (2 of 2) 03/08/2022 01/11/2022 COVID-19 Vaccine ( season) 2024 08/10/2023, 05/20/2022, 07/04/2021, Additional history exists Depression Screening 07/17/2024 Colorectal Cancer Screening: Colonoscopy 11/11/2024 HIV Screening 11/11/2024 Hepatitis C Screening 11/11/2024 Social Influencers of Health Screening 11/11/2024 Influenza Vaccine (#1) 2025 , 05/20/2022, 08/25/2020 RSV Immunization Adult Patients (1 - 1-dose 75+ series) 12/25/2039 HIB Vaccines Aged Out No longer eligi ble based on patient's age to complete this topic HPV Vaccines Aged Out No longer eligi ble based on patient's age to complete this topic Hepatitis A Vaccines Aged Out No long er eligible based on patient's age to complete this topic Hepatitis B Vaccines Aged Out No long er eligible based on patient's age to complete this topic IPV Vaccines Aged Out No longer eligi ble based on patient's age to complete this topic MMR Vaccines Aged Out No longer eligi ble based on patient's age to complete this topic Meningococcal ACWY Vaccine Aged Out N o longer eligible based on patient's age to complete this topic Meningococcal B Vaccine Aged Out No l onger eligible based on patient's age to complete this topic RSV Immunization Patients Under 20 months Aged Out No longer eligible based on patient's age to complete this topic Varicella Vaccines Aged Out No longer eligible based on patient's age to complete this topic Procedures Procedure Name Priority Date/Time Associated Diagnosis Comments [facility] Routine 06/23/2019 1:02 PM EST Encounter for screening mammogram for malignant neoplasm of breast from Last 3 Months or Most Recently Relevant to Health Maintenance Results * [facility] (06/23/2019 1:02 PM EST) Anatomical Region Laterality Modality Mammography 06/21/2019 2:55 PM EST Narrative 06/23/2019 1:02 PM EST [facility] Diagnostic Imaging Department [address] [place] [address] Patient: JONNMAXINEO.B./Age/Sex: 1965 - 53 - F Unit#: [id number] Location/Status: SPDIMAM/REG CLI Mnemonic/Ordering Site: [facility] [place] Ordering Physician: KRISTY MCGREGOR MD Christina Screening Digital - 06/21/19 - 1522 EXAM: [facility] Screening Digital EXAM DATE AND TIME: 06/21/2019 3:23 PM HISTORY: Screening. Mother, at age 80, and sister, at age 56, had breast carcinoma. COMPARISON: 04/10/18, 03/27/17, 03/17/17, 02/12/16, 08/12/13 TECHNIQUE: CC and MLO views of both breasts were obtained using full field digital mammography. Bilateral digital breast tomosynthesis was performed in the MLO projection. Computer aided detection with the [employer] was employed. TISSUE DENSITY: c. The breasts are heterogeneously dense, which may obscure small masses. FINDINGS: No suspicious masses, grouped microcalcifications, or areas of architectural distortion are seen. The skin and vascularity are unremarkable. IMPRESSION: Stable mammographic appearance of the breasts. No evidence of malignancy is seen. A negative mammogram in the presence of a clinically suspicious palpable abnormality does not preclude the possibility of malignancy or alter the indications for biopsy. BI-RADS: Category 1: Negative RECOMMENDATION(S): 1: Routine screening mammogram BILATERAL in 1 year. 85898, 12113 3341F, 7025F Dictating Physician: MAYA DRIVER MD Electronically Signed by: MAYA DRIVER MD Dic Date/Time: 06/23/19 1301 Sign date/Time: 06/23/19 1302 Procedure Note Maya Driver - 07/06/2022 [facility] Diagnostic Imaging Department [address] [place], [place] [id number] Patient: MAXINE LUNSFORD Abby Zamudio/Age/Sex: 1965 - 53 - F Unit#: [id number] Location/Status: [facility] CLI Mnemonic/Ordering Site: [facility] [place] Ordering Physician: KRISTY MCGREGOR MD Christina Screening Digital - 06/21/19 - 1522 EXAM: [facility] Screening Digital EXAM DATE AND TIME: 06/21/2019 3:23 PM HISTORY: Screening. Mother, at age 80, and sister, at age 56, hadbreast carcinoma. COMPARISON: 04/10/18, 03/27/17, 03/17/17, 02/12/16, 08/12/13 TECHNIQUE: CC and MLO views of both breasts were obtained using fullfield digital mammography. Bilateral digital breast tomosynthesis was performedin the MLO projection. Computer aided detection with the [employer]Advice Companyas employed. TISSUE DENSITY: c. The breasts are heterogeneously dense, which mayobscure small masses. FINDINGS: No suspicious masses, grouped microcalcifications, or areas ofarchitectural distortion are seen. The skin and vascularity are unremarkable. IMPRESSION: Stable mammographic appearance of the breasts. No evidence of malignancyis seen. A negative mammogram in the presence of a clinically suspicious palpable abnormality does not preclude the possibility of malignancy or alter the indications for biopsy. BI-RADS: Category 1: Negative RECOMMENDATION(S): 1: Routine screening mammogram BILATERAL in 1 year. 59996, 95617 3341F, 7025F Dictating Physician: MAYA DRIVER MD Electronically Signed by: MAYA DRIVER MD Dic Date/Time: 06/23/19 1301 Sign date/Time: 06/23/19 1302 Kristy Mcgregor MD IMG BI PROCEDURES Final Result from Last 3 Months or Most Recently Relevant to Health Maintenance Insurance [employer] Care Teams Garment Folder Relationship Specialty Start Date End Date Syl Ayala MD 2 [facility] , [address] Physician Associ D/B/A: [facility] [place] [facility] PCP - General Internal Medicine 11/12/24
== END 2025-03-05 16:30 | disposition home or self-care (01) ==
LOC: HO.HWS 15:37
PROVIDERS: PCP Internal Medicine; Visit Provider Advanced Practice Midwife
DX: Z01.419 Encounter for gynecological examination (general) (routine) without abnormal findings (principal)
CPT/HCPCS: 99396; 99459

== ENCOUNTER 2025-03-27 15:18 | Outpatient (AMB) | payer OTHER, SELFPAY ==
--- NOTE | 2025-03-27 15:19 | MHC.OFFVIS ---
Vital Signs 03/27/25 15:25 Height 5 ft 4 in Weight 183 lb BMI 31.4 BP 132/75 Blood Pressure Location Rt brachial Position Sitting Pulse 92 Intake Visit Reasons: lipoma (R) lower back since 02/20/25 Intake Note: Patient referred by [facility] for evaluation and treatment of lipoma on rt lower back. Patient c/o: lump recently noticed due to achyness at site. No hx of skin CA. 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 She has felt this lump on the right flank area for about a couple of months she says. She says this may have increased in size. She describes some discomfort but no pain. She denies skin changes. [facility] Medical History (Updated 03/27/25 @ 15:34 by Gage Median MD) Lipoma of flank Physical exam Screening for cervical cancer Dyslipidemia Family history of diabetes mellitus Surgical History History of ankle surgery Family History Mother Cancer Alzheimer disease Ovarian cancer Breast cancer Father Diabetes Sister Breast cancer, Onset Age: 50 Social History Housing: House Alcohol intake: current Alcohol intake frequency: a few times a week Alcohol type: beer, wine and hard liquor Patient Tobacco Use Status: Former Tobacco user Tobacco use type: Cigarette e-Cigarette/Vaping Use: Never Used Second Hand Smoke Exposure: No service: No Current occupational status: employed Current occupational exposures/hazards: No Cognitive needs: No Hearing needs: No Vision needs: Yes Review of Systems Const Denies chills and Denies fever(s) Card Denies chest pain, Denies dyspnea and Denies dyspnea on exertion Resp Denies cough, Denies dyspnea and Denies dyspnea on exertion GI Denies hematochezia and Denies change in bowel habits Denies hematuria Musc Denies back pain and Denies limited range of motion Neuro Denies focal weakness and Denies convulsions Psych Denies depression and Denies mood swings Physical Exam Vital Signs: Last Vital Signs Pulse 92 03/27/25 15:25 BP 132/75 03/27/25 15:25 BMI result Body Mass Index 31.4 Const General: comfortable and no acute distress Orientation/consciousness: patient oriented x3 Neck Neck: Yes no lymphadenopathy Resp Auscultation: clear to auscultation bilaterally Cardio Rhythm: regular rhythm GI Other: Right flank with note of a mobile mass about 2.5 cm, well-defined, Palpation (GI): Soft to palpation, nontender and no guarding Neuro General: patient oriented x3 Assessment & Plan Assessment & Plan (1) Lipoma of flank: Code(s): D17.1 - Benign lipomatous neoplasm of skin and subcutaneous tissue of trunk Category: Medical Plan She has this well-defined mobile mass in the deep subcutaneous layer of the right flank area. This appears to be a lipoma. I explained the technique of excision under local anesthesia. I reviewed the risks including but not limited to bleeding and infections, as well as the benefits and alternatives. She understands and wants to proceed. This will be done in the office on her next visit. Coding Level of Care Code New Pt Level 3 (68064) Diagnoses Lipoma of flank D17.1
[2025-03-27 15:25] VITALS: BP 132/75; PULSE 92; BMI 31.4
== END 2025-03-27 15:46 | disposition home or self-care (01) ==
LOC: HO.HGS 15:19
PROVIDERS: PCP Internal Medicine; Visit Provider Surgery
DX: D17.1 Benign lipomatous neoplasm of skin and subcutaneous tissue of trunk (principal)
CPT/HCPCS: 99203

== ENCOUNTER 2025-04-26 07:27 | Outpatient (REF) | payer OTHER, SELFPAY ==
--- OUTSIDE RECORDS SUMMARY | 2025-04-26 07:29 | XMS_ITS | Clinical Summary ---
Author Organization [address] Address [address] [place] [phone] Phone Care Team Providers Care Bookkeeping Machine Mechanic Name Role Phone Syl Ayala MD Primary Care Provider [phone] Social History Tobacco Use Types Packs/Day Years Used Date Smoking Tobacco: Never Assessed Comments Unknown Sex and Gender Information Value Date Recorded Sex Assigned at Not on file Legal Sex Female 11:13 AM EST Gender Identity Not on file Sexual Orientation Not on file Plan of Treatment Health Maintenance Due Date Last Done Comments Colorectal Cancer Screening: Colonoscopy 1965 DTaP,Tdap,and Td Vaccines (1 - Tdap) 12/25/1983 Cervical Cancer Screening: Pap Smear 1985 Pneumococcal Vaccine: 50+ Years (1 of 1 - PCV) 2014 Breast Cancer Screening 06/23/2021 06/23/2019, 04/10 Zoster Vaccines (2 of 2) 03/08/2022 01/11/2022 Depression Screening 07/17/2024 HIV Screening 11/11/2024 Hepatitis C Screening 11/11/2024 Social Influencers of Health Screening 11/11/2024 COVID-19 Vaccine ( season) 2025 08/10/2023, 05/20/2022, 07/04/2021, Additional history exists Influenza Vaccine (#1) 2025 , 05/20/2022, 08/25/2020 [...] Procedure Name Priority Date/Time Associated Diagnosis Comments [facility] SCREENING DIGITAL Routine 06/23/2019 1:02 PM EST Encounter for screening mammogram for malignant neoplasm of breast from Last 3 Months or Most Recently Relevant to Health Maintenance Results * [facility] SCREENING DIGITAL (06/23/2019 1:02 PM EST) Anatomical Region Laterality Modality Mammography 06/21/2019 2:55 PM EST Narrative 06/23/2019 1:02 PM EST [facility] Diagnostic Imaging Department [address] [place] [address] Patient: JONNMAXINE D.O.B./Age/Sex: 1965 - 53 - F Unit#: [id number] Location/Status: SPDIMAM/REG CLI Mnemonic/Ordering Site: [facility] Ordering Physician: KRISTY MCGREGOR MD Christina Screening Digital - 06/21/19 - 1522 EXAM: [facility] Screening Digital EXAM DATE AND TIME: 06/21/2019 3:23 PM HISTORY: Screening. Mother, at age 80, and sister, at age 56, had breast carcinoma. COMPARISON: 04/10/18, 03/27/17, 03/17/17, 02/12/16, 08/12/13 TECHNIQUE: CC and MLO views of both breasts were obtained using full field digital mammography. Bilateral digital breast tomosynthesis was performed in the MLO projection. Computer aided detection with the [employer] was employed. TISSUE DENSITY: c. The breasts [...] Routine screening mammogram BILATERAL in 1 year. [address]5790, 68991 3341F, 7025F Dictating Physician: MAYA DRIVER MD Electronically Signed by: MAYA DRIVER MD Dic Date/Time: 06/23/19 1301 Sign date/Time: 06/23/19 1302 Procedure Note Maya Driver - 07/06/2022 [facility] Diagnostic Imaging Department [address] [place], [place] [id number] Patient: MAXINE LUNSFORD Abby Rebolledo./Age/Sex: 1965 - 53 - F Unit#: [id number] Location/Status: [facility] CLI Mnemonic/Ordering Site: [facility] Ordering Physician: KRISTY MCGREGOR MD [facility] Screening Digital - 06/21/19 - 1522 EXAM: [facility] Screening Digital EXAM DATE AND TIME: 06/21/2019 3:23 PM HISTORY: Screening. Mother, at age 80, and sister, at age 56, hadbreast carcinoma. COMPARISON: 04/10/18, 03/27/17, 03/17/17, 02/12/16, 08/12/13 TECHNIQUE: CC and MLO views of both breasts were obtained using fullfield digital mammography. Bilateral digital breast tomosynthesis was performedin the MLO projection. Computer aided detection with the [employer] employed. TISSUE DENSITY: c. The breasts are [...] Routine screening mammogram BILATERAL in 1 year. [address]884, 63417 3341F, 7025F Dictating Physician: MAYA DRIVER MD Electronically Signed by: MAYA DRIVER MD Dic Date/Time: 06/23/19 1301 Sign date/Time: 06/23/19 1302 Kristy Mcgregor MD IMG BI PROCEDURES Final Result from Last 3 Months or Most Recently Relevant to Health Maintenance Insurance [employer] Care Teams Bookkeeping Machine Mechanic Relationship Specialty Start Date End Date Syl Ayala MD 2 [facility] , [address] Physician Associ D/B/A: [facility] [place] PCP - General Internal Medicine 11/12/24
== END 2025-04-26 07:28 | disposition home or self-care (01) ==
LOC: HO.MAMMO 07:27
PROVIDERS: PCP Internal Medicine; Visit Provider Internal Medicine
DX: Z12.31 Encounter for screening mammogram for malignant neoplasm of breast (principal)
CPT/HCPCS: 77063; 77067

== ENCOUNTER → 2025-04-26 07:30 | Outpatient (BNV) | payer OTHER, SELFPAY | PROVIDERS: PCP Internal Medicine; Visit Provider Radiology Body Imaging | DX: Z12.31 Encounter for screening mammogram for malignant neoplasm of breast (principal) | CPT/HCPCS: 77063; 77067 ==

== ENCOUNTER 2025-05-08 15:18 | Outpatient (AMB) | payer OTHER, SELFPAY ==
[2025-05-08 15:19] VITALS: BMI 31.4
--- NOTE | 2025-05-08 15:19 | MHC.OFFVIS ---
Vital Signs 05/08/25 15:19 Height 5 ft 4 in Weight 182 lb 15.986 oz BMI 31.4 Intake Visit Reasons: EXC Rt back~ lipoma Intake Note: Office procedure: EXC Rt back~ lipoma Rug Cleaner Hand Required: No Accompanied by: Self / Same As Patient Allergies No Known Allergies Allergy (Verified 05/08/25 15:20) HPI HPI EXC Rt back~ lipoma: Details: She is here for excision of a lipoma from the right flank area. [facility] Medical History Lipoma of flank Physical exam Screening for cervical cancer Dyslipidemia Family history of diabetes mellitus Surgical History History of ankle surgery Family History Mother Cancer Alzheimer disease Ovarian cancer Breast cancer Father Diabetes Sister Breast cancer, Onset Age: 50 Social History Housing: House Alcohol intake: current Alcohol intake frequency: a few times a week Alcohol type: beer, wine and hard liquor Patient Tobacco Use Status: Former Tobacco user Tobacco use type: Cigarette e-Cigarette/Vaping Use: Never Used Second Hand Smoke Exposure: No service: No Current occupational status: employed Current occupational exposures/hazards: No Cognitive needs: No Hearing needs: No Vision needs: Yes Physical Exam Vital Signs: BMI result Body Mass Index 31.4 Office Procedures Excision Details: She was actually placed in a sitting position bent to the left to expose the lipomatous mass which was in the deep subcutaneous area. This area was then prepped and draped. Lidocaine 1% was used generously to infiltrate the area. I made a transverse incision in the skin over the leg the lipoma. I carried this incision through the full-thickness of the skin and thick subcutaneous fat using Metzenbaum scissors until was able to visualize the lipomatous mass. I sharply dissected the lipoma was status mass off of the rest of the deep subcutaneous layer circumferentially until I was able to deliver this. The lipoma measured about 4.4 cm x 4 cm. This was sent as a specimen. I closed the incision with full-thickness nylon 3-0 simple interrupted sutures. Dressings were applied. The procedure was completed. She tolerated procedure well. There was minimal blood loss. She was given wound care instructions. 62346-ucyag/arms/legs >4cm Procedure code (CPT) selection complete Assessment & Plan Assessment & Plan (1) Lipoma of flank: Code(s): D17.1 - Benign lipomatous neoplasm of skin and subcutaneous tissue of trunk Category: Medical Plan: Excision was done in the office. This was a large lipoma in the deep subcutaneous layer. Given wound care instructions. She can take Tylenol and ibuprofen for pain. I will see her in the office in about 2 weeks for removal sutures. Coding Level of Care Code Global (71877) Diagnoses Lipoma of flank D17.1 CPT Codes Trunk/Arms/Legs - CPT: 31633-ouqcs/arms/legs >4cm ([id number])
--- OUTSIDE RECORDS SUMMARY | 2025-05-08 19:06 | XMS_ITS | Clinical Summary ---
Author Organization [address] Address [address] [place] [phone] Phone Care Team Providers Care Bed Maker Name Role Phone Syl Ayala MD Primary Care Provider Social History Tobacco Use Types Packs/Day Years [...] Procedure Name Priority Date/Time Associated Diagnosis Comments [facility] SCREENING DIGITAL Routine 06/23/2019 1:02 PM EST Encounter for screening mammogram for malignant neoplasm of breast from Last 3 Months or Most Recently Relevant to Health Maintenance Results * [facility] SCREENING DIGITAL (06/23/2019 1:02 PM EST) Anatomical Region Laterality Modality Mammography 06/21/2019 2:55 PM EST Narrative 06/23/2019 1:02 PM EST [facility] Diagnostic Imaging Department [address] [place] [address] Patient: JONNMAXINE D.O.B./Age/Sex: 1965 - 53 - F Unit#: [id number] Location/Status: SPDIMAM/REG CLI Mnemonic/Ordering Site: [facility] Ordering Physician: KRISTY MCGREGOR MD Christina Screening Digital - 06/21/19 - 1522 EXAM: [facility] Screening Digital EXAM DATE AND TIME: 06/21/2019 3:23 PM HISTORY: Screening. Mother, at age 80, and sister, at age 56, had breast carcinoma. COMPARISON: 04/10/18, 03/27/17, 03/17/17, 02/12/16, 08/12/13 TECHNIQUE: CC and MLO views of both breasts were obtained using full field digital mammography. Bilateral digital breast tomosynthesis was performed in the MLO projection. Computer aided detection with the [employer] was employed. TISSUE DENSITY: c. The breasts [...] Routine screening mammogram BILATERAL in 1 year. 88503, 61432 3341F, 7025F Dictating Physician: MAYA DRIVER MD Electronically Signed by: MAYA DRIVER MD Dic Date/Time: 06/23/19 1301 Sign date/Time: 06/23/19 1302 Procedure Note Maya Driver - 07/06/2022 [facility] Diagnostic Imaging Department [address] [place], [place] [id number] Patient: MAXINE LUNSFORD Abby Rebolledo./Age/Sex: 1965 - 53 - F Unit#: [id number] Location/Status: [facility] CLI Mnemonic/Ordering Site: [facility] Ordering Physician: KRISTY MCGREGOR MD [facility] Screening Digital - 06/21/19 - 1522 EXAM: [facility] Screening Digital EXAM DATE AND TIME: 06/21/2019 3:23 PM HISTORY: Screening. Mother, at age 80, and sister, at age 56, hadbreast carcinoma. COMPARISON: 04/10/18, 03/27/17, 03/17/17, 02/12/16, 08/12/13 TECHNIQUE: CC and MLO views of both breasts were obtained using fullfield digital mammography. Bilateral digital breast tomosynthesis was performedin the MLO projection. Computer aided detection with the [employer].2-[employer]as employed. TISSUE DENSITY: c. The breasts are [...] Routine screening mammogram BILATERAL in 1 year. 30977, 24895 3341F, 7025F Dictating Physician: MAYA DRIVER MD Electronically Signed by: MAYA DRIVER MD Dic Date/Time: 06/23/19 1301 Sign date/Time: 06/23/19 1302 Kristy Mcgregor MD IMG BI PROCEDURES Final Result from Last 3 Months or Most Recently Relevant to Health Maintenance Insurance [employer] Care Teams Bed Maker Relationship Specialty Start Date End Date Syl Ayala MD 2 [facility] , [address] Physician Associ D/B/A: [facility] [place] PCP - General Internal Medicine 11/12/24
== END 2025-05-08 16:15 | disposition home or self-care (01) ==
LOC: HO.HGS 15:18
PROVIDERS: PCP Internal Medicine; Visit Provider Surgery
DX: D17.1 Benign lipomatous neoplasm of skin and subcutaneous tissue of trunk (principal)
CPT/HCPCS: 11406; 99024

== ENCOUNTER 2025-05-08 15:18 | Outpatient (REF) | payer OTHER, SELFPAY | END 2025-05-08 15:19 | disposition home or self-care (01) | LOC: HO.LNP 15:18 | PROVIDERS: PCP Internal Medicine; Visit Provider Surgery | DX: D17.1 Benign lipomatous neoplasm of skin and subcutaneous tissue of trunk (principal) | CPT/HCPCS: 11406; 88304 ==